=== PATIENT | male | born 1940 | race Caucasian/White ===

== ENCOUNTER 2021-08-19 17:05 | Emergency (ER) | payer MEDICARE ==
[~2021-08-19] VITALS: Ht 157.5 cm; Wt 81.6 kg
--- NOTE | 2021-08-19 17:08 | NUR ---
Placed in room 05 . Placed on monitoring analyst, blood pressure machine and pulse oximeter. To gown for exam. Side rails up.
[2021-08-19 17:10] VITALS: BP_SYST 158
[2021-08-19] MEDS ORDERED: MORPHINE 2 MG/ML INJ. SYRINGE IVP ONE (17:15)
--- NOTE | 2021-08-19 17:15 | NUR ---
ED MD AT BEDSIDE FOR ASSESSMENT AND EVALUATION.
--- NOTE | 2021-08-19 17:30 | NUR ---
RECEIVED PT IN BED #5, BIBA FROM HOME WITH CC OF RLQ ABDOMINAL PAIN, EKG COMPLETED AND FURTHER ASSESSMENTS. NAD, VSS, AAOx3, DENIES URINARY AND BOWEL ISSUES PRIOR. MD TO FURTHER EVALUATE TO DETERMINE DISPOSITION WITH PLAN OF CARE.
--- NOTE | 2021-08-19 17:45 | NUR ---
IV PLACED, LABS DRAWN, PT MEDICATED, AWAITING ADDITIONAL EVALUATIONS TO DETERMINE PLAN OF CARE.
[2021-08-19 18:18] LABS: ANION GAP 10 (5-15); CALCIUM 9.6 mg/dL (8.4-11.0); CHLORIDE 102 mmol/L (98-107); CREATININE 0.95 mg/dL (0.55-1.30); GLUCOSE 97 mg/dL (70-99); POTASSIUM 3.5 mmol/L (3.5-5.1); SODIUM SERUM 138 mmol/L (136-145); UREA NITROGEN, BLOOD 13 mg/dL (8-21)
[2021-08-19 18:22] LABS: BASOPHILS % (AUTO) 0.4 % (0.0-2.0); EOSINOPHILS # (AUTO) 0.4 K/uL (0.0-0.4); HEMATOCRIT 40.4 % (36-54); HEMOGLOBIN 13.9 g/dL (14.0-18.0); LYMPHOCYTES # (AUTO) 0.4 K/uL (1.0-5.5); LYMPHOCYTES % (AUTO) 3.6 % (20.5-51.5); MEAN CORPUSCULAR HEMOGLOBIN 31 pg (27-31); MEAN CORPUSCULAR HGB CONC 35 % (32-36); MEAN CORPUSCULAR VOLUME 89 fL (79.0-98.0); MONOCYTES # (AUTO) 0.3 K/uL (0.0-1.0); MONOCYTES % (AUTO) 3.2 % (1.7-9.3); NEUTROPHILS # (AUTO) 9.6 K/uL (1.8-7.7); NEUTROPHILS % (AUTO) 88.8 % (40.0-70.0); PLATELET COUNT (AUTO) 181 K/uL (130-430); RED BLOOD CELL COUNT(AUTO) 4.52 MIL/uL (4.2-6.2); RED CELL DISTRIBUTION WIDTH 14.9 % (9.0-15.0); WHITE BLOOD COUNT (AUTO) 10.8 K/uL (4.8-10.8)
[2021-08-19 18:29] LABS: ALANINE AMINOTRANSFERASE 42 U/L (12-78); ALBUMIN 3.8 g/dL (3.4-4.8); ASPARTATE AMINOTRANSFERASE 39 U/L (10-37); LIPASE 211 U/L (73-393); TOTAL BILIRUBIN 2.4 mg/dL (0.0-1.0)
--- NOTE | 2021-08-19 18:57 | NUR ---
PT TO CTA
--- NOTE | 2021-08-19 19:20 | NUR ---
RECEIVED REPORT FROM KATHRINE/RN, PT A&O X4, VERBAL, AMBULATORY WITH ASSIST, WITH C/O LLQ PAIN, HX: CROHN'S DSE & PACEMAKER, NO C/O PAIN AT THIS TIME, NO SOB/ DISTRESS, ELEVATED HR, WITH IVSL RAC G-20, CARE ASSUMED.
[2021-08-19] MEDS ORDERED: NS 250 ML IV ONE (20:30)
--- NOTE | 2021-08-19 21:52 | NUR ---
GAVE REPORT TO BENOIT AT [facility], PT A&O X4, VERBAL, NO SOB/ DISTRESS, NO C/O PAIN. VSS.
--- NOTE | 2021-08-19 22:00 | NUR ---
CAREGIVER FROM [facility] ASSISTED AT BEDSIDE, PT A&O X4, VERBAL, AMBULATORY WITH ASSIST, ALL D/C PAPERWORKS GIVEN, EDUCATION, INTRUCTIONS, IVSL D/C WITHOUT BLEEDING. NO FURTHER NEEDS.
[2021-08-19 22:19] VITALS: BP_SYST 139
== END 2021-08-19 22:00 | disposition home or self-care (01) ==
LOC: SED 17:05
DX: K59.00 Constipation, unspecified (principal); E78.00 Pure hypercholesterolemia, unspecified
CPT/HCPCS: 36415; 74177; 76376; 80053; 83605; 83690; 85025; 93005; 96361; 96374; 99285; J2270; J7030; Q9967 ×2

== ENCOUNTER 2024-04-28 22:43 | Emergency (ER) | payer OTHER ==
[~2024-04-28] VITALS: Ht 177.8 cm; Wt 82.6 kg
[~2024-04-28 22:43] MED LIST: ASA81 PO; CEFD300C3 PO; LISI10TA29 PO; NEU300 PO; POLY17PO4 PO
[2024-04-28 22:50] VITALS: BP_SYST 145; PULSE 70; RESP 18; TEMP 96.8; O2SAT 99
[2024-04-29 01:35] VITALS: BP_SYST 138; PULSE 71; RESP 18; O2SAT 99
[2024-04-29] MEDS: MORPHINE 4 MG INJ. 4 MG/ML VIAL IM ONE (01:43)
[2024-04-29] MEDS ORDERED: NEU300 PO (01:50)
== END 2024-04-29 01:55 | disposition home or self-care (01) ==
LOC: SED 22:43
DX: G62.9 Polyneuropathy, unspecified (principal); M79.662 Pain in left lower leg; I10 Essential (primary) hypertension; E78.00 Pure hypercholesterolemia, unspecified; Z95.0 Presence of cardiac pacemaker; Z79.899 Other long term (current) drug therapy
CPT/HCPCS: 99285; 93971; 96372; J2270